=== PATIENT | male | born 2005 | race American Indian/Alaskan Native ===

== ENCOUNTER 2024-10-30 07:32 | Emergency (ER) | payer OTHER ==
[~2024-10-30] VITALS: Ht 185.4 cm; Wt 118.8 kg
[2024-10-30] MEDS ORDERED: KETOROLAC TROMETHAMINE 30 MG/ML VIAL IV ONE (08:00)
[2024-10-30 08:05] LABS: BILIRUBIN, URINE NEGATIVE (negative); BLOOD/HGB, URINE LARGE (Negative); KETONE, URINE NEGATIVE (Negative); LEUK ESTERASE, URINE NEGATIVE (negative); NITRITE, URINE NEGATIVE (negative); PH, URINE 7.5 (5-7)
[2024-10-30 08:08] LABS: BASOPHILS 0.1 % (0-2); EOSINOPHILS 0.1 % (0-6); HEMATOCRIT 45.9 % (35.0-50.0); HEMOGLOBIN 15.3 g/dL (12.0-18.0); LYMPHOCYTES 4.2 % (24-44); MCH 29.1 (27-36); MCHC 33.4 g/dl (30-36); MCV 87.3 fl (81-99); MONOCYTES 2.5 % (0-12); NEUTROPHILS 93.1 % (39-80); PLATELET COUNT 229 K/uL (140-440); RBC 5.26 M/ul (4.3-5.7)
[2024-10-30 08:13] LABS: RED BLOOD CELLS, URINE >50 /hpf (0-5)
[2024-10-30 08:14] LABS: BACTERIA, URINE NONE SEEN /hpf (negative); CASTS, URINE NONE SEEN \\lpf; COLLECTION TYPE, URINE CLEAN CATCH; CRYSTALS, URINE NONE SEEN (0-1+); EPITHELIAL CELLS, URINE 0 /lpf (0-1+); REFLEX CULTURE, URINE No (No)
[2024-10-30 08:17] LABS: ALBUMIN 4.4 g/dL (3.4-5.0); ALBUMIN/GLOBULIN RATIO 1.07 (1.1-2.4); ANION GAP 13.8 (7-21); BILIRUBIN, TOTAL 0.5 ng/dL (0.2-1.0); BUN/CREATININE RATIO 9.73 (6.0-28.6); CREATININE, SERUM 1.13 mg/dL (0.70-1.30); POTASSIUM 3.8 mmol/L (3.5-5.1); PROTEIN, TOTAL 8.5 g/dL (6.4-8.2)
[2024-10-30] MEDS ORDERED: OXYCODONE HCL5 MG PO (09:29)
[2024-10-30] MEDS ORDERED: KETOROLAC TROME10 MG PO (09:29)
[2024-10-30] MEDS ORDERED: ONDANSETRON ODT4 MG PO (09:29)
[2024-10-30] MEDS ORDERED: FLOMAX0.4 MG PO (09:29)
[2024-10-30] MEDS ORDERED: TAMSULOSIN HCL 0.4 MG CAP PO ONE (09:30)
[2024-10-30 09:45] VITALS: BP 140/64
== END 2024-10-30 09:46 | disposition home or self-care (01) ==
LOC: ED 07:32
PROVIDERS: Emergency Medicine
DX: N13.2 Hydronephrosis with renal and ureteral calculous obstruction (principal); Z91.048 Other nonmedicinal substance allergy status
CPT/HCPCS: 36415; 74176; 80053; 81001; 85025; 96374; 99284-25; J1885